=== PATIENT | female | born 1945 | race Caucasian/White ===

== ENCOUNTER 2018-12-24 06:21 | Day surgery (SDC) | payer OTHER ==
[2018-12-23 10:04] VITALS: BMI 21.9
[~2018-12-24 06:21] MED LIST: EPINEPHrine 0.3 MG, Dextrose 50% 3 ML in Ophthalmic Irrigation Solution 500 ML IVP SCH
[2018-12-24] MEDS ORDERED: Phenylephrine 2.5% Ophth Soln 5 ML BOT ONE (07:02)
[2018-12-24] MEDS ORDERED: Cyclopentolate 1% Opth Drop 2 ML BOT ONE (07:02)
--- NOTE | 2018-12-24 11:39 | OP ---
DATE OF PROCEDURE: 12/24/2018 PRINCIPAL PREOPERATIVE DIAGNOSES: 1. Vitreous hemorrhage, right eye. 2. Proliferative diabetic retinopathy, right eye. POSTOPERATIVE DIAGNOSES: 1. Vitreous hemorrhage, right eye. 2. Proliferative diabetic retinopathy, right eye. 3. Tractional retinal detachment, right eye. ESTIMATED BLOOD LOSS: None. SPECIMENS REMOVED: None. COMPLICATIONS: None. ANESTHESIA: MAC with retrobulbar block. DESCRIPTION OF PROCEDURE: The patient was identified in the preoperative holding area, where the correct eye being the right eye was marked for surgery. The patient was taken to the operating room, where MAC anesthesia was induced. A retrobulbar block was administered to the right eye. The block consisted of 1:1 ratio of 2% lidocaine and 0.75% Marcaine. Total of 5 mL was administered. The right eye was then prepped and draped in the usual sterile ophthalmic fashion for surgery. A wire lid speculum was placed. A standard 25-gauge pars plana vitrectomy platform was fashioned with trocars placed approximately 3.5 mm from the limbus. The infusion was noted to be within the vitreous cavity prior to being turned on to infusion pressure of 30 mmHg. A light pipe Micro vitrector was introduced in the eye under visualization of viewing system. A dense white old vitreous hemorrhage was noted. The Micor vitrector was inserted just posterior to the posterior chamber intraocular lens to clear the vitreous hemorrhage in a slow progressive fashion moving posteriorly. Upon progressive clearance of the vitreous hemorrhage, the retina was brought into visualization. It was noted to be tractionally detached throughout with atrophic defects diffusely throughout the retina. The retina was noted to be in a non-recoupable state, and the retinal detachment was deemed to be inoperative. Using the Endolaser, panretinal photocoagulation was placed to decrease likelihood of neovascularization, particularly of the anterior segment resulting in neovascular glaucoma. Following completion of the Endolaser, the cannulas were sequentially removed, and all sclerotomies were noted to be watertight. Subconjunctival Ancef and Kenolog were injected. The lid speculum was removed followed by application of Tobradex ophthalmic ointment and light patch and shield. The patient tolerated the procedure well and was taken to the outpatient recovery area in good condition. Job ID: [id number]
== END 2018-12-24 10:22 | disposition home or self-care (01) ==
LOC: SDC 06:21
PROVIDERS: ATTEND Ophthalmology Retina Specialist
PROC: 085E3ZZ Destruction of Right Retina, Percutaneous Approach (ICD-10-PCS; principal; 2018-12-24)
PROC: 08T43ZZ Resection of Right Vitreous, Percutaneous Approach (ICD-10-PCS; principal; 2018-12-24)
DX: E11.3531 Type 2 diabetes mellitus with proliferative diabetic retinopathy with traction retinal detachment not involving the macula, right eye (principal); H43.11 Vitreous hemorrhage, right eye; H40.9 Unspecified glaucoma
CPT/HCPCS: J0171